=== PATIENT | male | born 1940 | race Caucasian/White ===

== ENCOUNTER 2018-08-14 09:52 | Day surgery (SDC) | payer OTHER ==
[~2018-08-14] VITALS: Ht 157.5 cm; Wt 83.0 kg
[~2018-08-14 09:52] MED LIST: 0.9% SODIUM CHLORIDE 10 ML SYRINGE IVP PRN; ASPI81TA39 PO; ATEN100T PO; BENA40TA9 PO; FURO40TA5 PO; INSLAN SQ; IRON-24 PO; METOPROLOL TARTRATE 50 MG TABLET PO PRN; SIMV-261 PO
[2018-08-14 11:06] LABS: CALCIUM, TOTAL 9.3 mg/dL (8.8-10.5); CREATININE 1.32 mg/dL (0.60-1.30); POTASSIUM 4.7 mmol/L (3.5-5.1)
[2018-08-14 11:13] LABS: GLUCOMETER DEV NAME(LOC) SDS.; GLUCOSE,POINT OF CARE 136 MG/DL (70-110)
[2018-08-14] MEDS ORDERED: METOPROLOL TARTRATE 5 MG/5 ML VIAL ONE (11:24)
[2018-08-14] MEDS ORDERED: NITROGLYCERIN 400 MCG/SUBLINGUAL SPRAY 4.9 GM BOTTLE SL ONE (11:24)
[2018-08-14] MEDS ORDERED: METOPROLOL TARTRATE 5 MG/5 ML VIAL IVP ONE ×3 (11:54→12:05)
== END 2018-08-14 13:05 | disposition home or self-care (01) ==
LOC: SURGERY 09:52 → EDSTATUS 10:30 → SURGERY 13:05
PROVIDERS: ATTEND Internal Medicine Cardiovascular Disease
DX: I20.8 Other forms of angina pectoris (principal); J47.9 Bronchiectasis, uncomplicated; J84.10 Pulmonary fibrosis, unspecified; M47.814 Spondylosis without myelopathy or radiculopathy, thoracic region; I08.3 Combined rheumatic disorders of mitral, aortic and tricuspid valves; I44.0 Atrioventricular block, first degree; I25.2 Old myocardial infarction; I44.7 Left bundle-branch block, unspecified; I27.20 Pulmonary hypertension, unspecified; I65.29 Occlusion and stenosis of unspecified carotid artery; I11.0 Hypertensive heart disease with heart failure; I50.9 Heart failure, unspecified; E78.5 Hyperlipidemia, unspecified; E11.9 Type 2 diabetes mellitus without complications; I70.292 Other atherosclerosis of native arteries of extremities, left leg; Z79.82 Long term (current) use of aspirin; Z98.49 Cataract extraction status, unspecified eye; Z79.891 Long term (current) use of opiate analgesic; Z79.84 Long term (current) use of oral hypoglycemic drugs; Z79.899 Other long term (current) drug therapy; Z98.890 Other specified postprocedural states; Z79.4 Long term (current) use of insulin
CPT/HCPCS: 36415; 75571; 80048; 82962; 93005; J3490

== ENCOUNTER 2021-06-01 05:23 | Day surgery (SDC) | payer MEDICARE, MEDICAID ==
[2021-05-30 15:31] LABS: COVID AG,FIA SOURCE NASOPHARYNGEAL
[2021-05-30 15:35] LABS: BASOPHILS % (AUTO) 0.9 % (0.0-2.0); EOSINOPHILS % (AUTO) 4.2 % (1.0-6.0); HEMATOCRIT 40.6 % (41-53); HEMOGLOBIN 13.3 g/dL (13.5-17.5); LYMPHOCYTES # (AUTO) 1.6 K/uL (1.0-4.8); LYMPHOCYTES % (AUTO) 16.7 % (22.0-44.0); MEAN CORPUSCULAR HEMOGLOBIN 31.4 pg (26.0-34.0); MEAN CORPUSCULAR HGB CONC 32.9 G/dL (31.0-37.0); MEAN CORPUSCULAR VOLUME 96 fL (80-100); MONOCYTES % (AUTO) 10.3 % (2.0-9.0); NEUTROPHILS # (AUTO) 6.3 K/uL (1.8-7.7); NEUTROPHILS % (AUTO) 67.9 % (40.0-70.0); PLATELET COUNT (AUTO) 245 K/uL (150-450); RED BLOOD CELL COUNT(AUTO) 4.24 MIL/uL (4.50-5.90); RED CELL DISTRIBUTION WIDTH 13.4 % (11.5-14.5)
[2021-05-30 15:43] LABS: CALCIUM, TOTAL 9.3 mg/dL (8.8-10.5); CREATININE 1.56 mg/dL (0.60-1.30); POTASSIUM 4.3 mmol/L (3.5-5.1)
[2021-05-30 15:47] LABS: INR 1.1 (0.9-1.1); PROTHROMBIN TIME 11.3 SEC (9.4-11.6)
[~2021-06-01] VITALS: Ht 157.5 cm; Wt 72.7 kg
[~2021-06-01 05:23] MED LIST changes: -0.9% SODIUM CHLORIDE 10 ML SYRINGE IVP PRN; +ACET-66 PO; +AMLO-257 PO; -ASPI81TA39 PO; -ATEN100T PO; +ATEN100T92 PO; +ATOR20TA86 PO; -BENA40TA9 PO; +CHOL-35 PO; +FLUT16H NASAL; -FURO40TA5 PO; -INSLAN SQ; -IRON-24 PO; -METOPROLOL TARTRATE 50 MG TABLET PO PRN; -SIMV-261 PO
[2021-06-01] MEDS ORDERED: SODIUM CHLORIDE 0.9% 1,000 ML ONE (05:31)
[2021-06-01] MEDS ORDERED: SODIUM CHLORIDE 0.9% 1,000 ML IV ONE ×2 (06:30→10:15)
[2021-06-01 06:42] LABS: GLUCOMETER DEV NAME(LOC) SDS.; GLUCOSE,POINT OF CARE 105 MG/DL (70-110)
[2021-06-01] MEDS ORDERED: LIDOCAINE/PF 1% 30 ML VIAL ONE (07:12)
[2021-06-01] MEDS ORDERED: IOHEXOL 300 MG/ML 50 ML VIAL ONE (07:12)
[2021-06-01] MEDS ORDERED: IOHEXOL 300 MG/ML 150 ML VIAL ONE ×2 (07:12→09:28)
[2021-06-01] MEDS ORDERED: SODIUM BICARBONATE 50 MEQ/50 ML VIAL ONE (07:12)
[2021-06-01] MEDS ORDERED: IOHEXOL 300 MG/ML 100 ML VIAL ONE (07:12)
[2021-06-01] MEDS ORDERED: HEPARIN SODIUM 1000 UNITS/NS 1,000 ML ONE (07:13)
[2021-06-01] MEDS ORDERED: INSLAN SQ (07:14)
[2021-06-01] MEDS ORDERED: APIX2.5T PO (07:14)
[2021-06-01] MEDS ORDERED: ENZA80TA PO (07:14)
[2021-06-01] MEDS ORDERED: FLUT16H NASAL (07:14)
[2021-06-01] MEDS ORDERED: ATOR20TA86 PO (07:14)
[2021-06-01] MEDS ORDERED: GABA-1216 PO (07:14)
[2021-06-01] MEDS ORDERED: SENN1TAB72 PO (07:14)
[2021-06-01] MEDS ORDERED: ATEN-73 PO (07:14)
[2021-06-01] MEDS ORDERED: AMLO-257 PO (07:14)
[2021-06-01] MEDS ORDERED: FAMO20 PO (07:14)
[2021-06-01] MEDS ORDERED: FURO40 PO (07:14)
[2021-06-01] MEDS ORDERED: EMPA10TA PO (07:14)
[2021-06-01] MEDS ORDERED: MAGN400T7 PO (07:14)
[2021-06-01] MEDS ORDERED: DOCU-270 PO (07:14)
[2021-06-01] MEDS ORDERED: BICA50TA8 PO (07:14)
[2021-06-01 07:59] VITALS: BP 144/73
[2021-06-01] MEDS ORDERED: NITROGLYCERIN 50 MG/D5% WATER 250 ML ONE (08:01)
[2021-06-01] MEDS ORDERED: MIDAZOLAM HCL 2 MG/2 ML VIAL ONE ×2 (08:12→09:13)
[2021-06-01] MEDS ORDERED: FentaNYL CITRATE PF 100 MCG/2 ML VIAL ONE (08:12)
[2021-06-01] MEDS ORDERED: HEPARIN SODIUM 1000 UNITS/NS 1,000 ML IARTER ONE (08:45)
[2021-06-01] MEDS ORDERED: IOHEXOL 300 MG/ML 100 ML VIAL IARTER ONE (08:45)
[2021-06-01] MEDS ORDERED: MIDAZOLAM HCL 2 MG/2 ML VIAL IVP ONE ×2 (08:45→09:30)
[2021-06-01] MEDS ORDERED: IOHEXOL 300 MG/ML 150 ML VIAL IARTER ONE (08:45)
[2021-06-01] MEDS ORDERED: LIDOCAINE 1% 30 ML/SOD BICARB 8.4% 4 ML SQ ONE (08:45)
[2021-06-01] MEDS ORDERED: FentaNYL CITRATE PF 100 MCG/2 ML VIAL IVP ONE ×2 (08:45→09:30)
[2021-06-01] MEDS ORDERED: ADENOSINE IV ONE (09:00)
[2021-06-01] MEDS ORDERED: CONTAINER EMPTY IV ONE (09:00)
[2021-06-01] MEDS ORDERED: HEPARIN SODIUM,PORCINE 5,000 UNITS/ML VIAL IVP ONE (09:30)
[2021-06-01] MEDS ORDERED: HYDROCODONE/ACETAMINOPHEN 5-325 MG TABLET PO PRN (10:15)
[2021-06-01] MEDS ORDERED: ACETAMINOPHEN 325 MG TABLET PO PRN (10:15)
[2021-06-01 10:25] VITALS: BP 150/71
[2021-06-02] MEDS ORDERED: SODIUM CHLORIDE 0.9% 1,000 ML IV ONE (06:30)
== END 2021-06-01 15:20 ==
LOC: CATHLAB 05:23
PROVIDERS: ATTEND Internal Medicine Cardiovascular Disease
DX: R94.39 Abnormal result of other cardiovascular function study (principal); I25.10 Atherosclerotic heart disease of native coronary artery without angina pectoris; I70.212 Atherosclerosis of native arteries of extremities with intermittent claudication, left leg; E11.22 Type 2 diabetes mellitus with diabetic chronic kidney disease; N18.9 Chronic kidney disease, unspecified; J96.10 Chronic respiratory failure, unspecified whether with hypoxia or hypercapnia; I12.9 Hypertensive chronic kidney disease with stage 1 through stage 4 chronic kidney disease, or unspecified chronic kidney disease; C61 Malignant neoplasm of prostate; Z79.4 Long term (current) use of insulin; Z79.899 Other long term (current) drug therapy; Z98.890 Other specified postprocedural states
CPT/HCPCS: 36415; 37225; 75625; 75710; 80048; 82962; 85025; 85610; 85730; 87426; 93005; 93460; 99152; 99153; C1714; C1725; C1760; C1887; C9803; J0153; J1644; J2250; J3010; J3490 ×3; J7030; Q9967 ×3; 36200; 37229; 75630; 75716; 75962; 99145; Z7610